=== PATIENT | male | born 1965 | race Caucasian/White ===

== ENCOUNTER 2018-09-24 06:23 | Inpatient (IN) | payer MEDICAID ==
[~2018-09-24] VITALS: Ht 172.7 cm; Wt 89.8 kg
[2018-09-24 06:32] VITALS: Ht 172.7 cm; Wt 89.8 kg
[2018-09-24 07:06] LABS: BASOPHIL % 1.3 % (0-2); PLATELET COUNT 202 x10^3mcL (130-400); RED CELL DISTRIBUTION WIDTH 13.2 % (11.5-14.5)
[2018-09-24 07:12] LABS: CALCIUM 8.3 mg/dL (8.5-10.1); CARBON DIOXIDE 28.3 mmol/L (21-32); CHLORIDE SERUM 103 mmol/L (98-107); CREATININE SERUM 0.9 mg/dL (0.7-1.3); GFR1 > 60 mL/min; GLUCOSE SERUM 127 mg/dL (74-106); POTASSIUM SERUM 3.7 mmol/L (3.5-5.1); SODIUM SERUM 138 mmol/L (136-145)
[2018-09-24 07:16] LABS: ALBUMIN 3.6 g/dL (3.4-5.0); ALKALINE PHOSPHATASE 71 U/L (46-116); ALT/SGPT 103 U/L (16-63); AST/SGOT 152 U/L (15-37); BILIRUBIN TOTAL 3.45 mg/dL (0.20-1.00); LIPASE 114 IU/L (73-393); TOTAL PROTEIN, SERUM 7.8 g/dL (6.4-8.2)
[2018-09-24 10:06] VITALS: BP 122/51
[2018-09-24 10:10] LABS: T3 TOTAL 1.41 ng/mL
[2018-09-24 10:24] LABS: FREE T4 1.53 ng/dL (0.76-1.46); T4(THYROXINE) 10.7 ug/dL (4.7-13.3)
[2018-09-24 11:01] LABS: MAGNESIUM 2.2 mg/dL (1.8-2.4); PHOSPHOROUS 2.6 mg/dL (2.5-4.9)
[2018-09-24] MEDS ORDERED: LACTULOSE10 GM/152 PO (14:41)
[2018-09-24] MEDS ORDERED: COLACE100 MG PO (14:44)
[2018-09-24 14:58] VITALS: BP 131/81
== END 2018-09-24 15:54 | disposition home or self-care (01) | DRG 254 ==
LOC: ED 06:23 → MU 07:10
PROVIDERS: Emergency Medicine; Internal Medicine; Surgery
PROC: 0DCP7ZZ Extirpation of Matter from Rectum, Via Natural or Artificial Opening (ICD-10-PCS; principal; 2018-09-24 11:00)
DX: T18.5XXA Foreign body in anus and rectum, initial encounter (principal); E78.5 Hyperlipidemia, unspecified; F14.10 Cocaine abuse, uncomplicated; R74.0 Nonspecific elevation of levels of transaminase and lactic acid dehydrogenase [LDH]; X58.XXXA Exposure to other specified factors, initial encounter; Y93.89 Activity, other specified; Y92.009 Unspecified place in unspecified non-institutional (private) residence as the place of occurrence of the external cause; Z68.26 Body mass index [BMI] 26.0-26.9, adult
CPT/HCPCS: 83880; 84439; 94150; G0480; J3010; J7030